=== PATIENT | female | born 1970 | race Caucasian/White ===

== ENCOUNTER 2016-08-02 21:51 | Inpatient (IN) | payer OTHER ==
--- NOTE | ~2016-08-02 | HP ---
Unit #: [id number] #: [id number] Patient: NIKOLE FORBES [id number] [address] [address] [id number] I MR#: [id number] NAME: NIKOLE MACIAS ROOM: 329 Age: 45 Sex: F Admission Date: 08/03/2016 : 1970 Attending Physician: Aracelis Brand M.D. Primary Care Physician: No Primary Care Physician HISTORY AND PHYSICAL CHIEF COMPLAINT Intentional Ambien overdose, agitation. HISTORY This 45-year-old female with history of depression, DJD who injects methamphetamines, is admitted after an Ambien overdose. The patient received two doses of Geodon in the ER and therefore, is a little bit sedated. However, whenever I spoke with her, she tells me that she took ten tablets of Ambien and possibly a second medication late last evening, perhaps about 7:30 p.m. EMS was called, the patient was extremely agitated. She was brought into this emergency department agitated, spitting at staff. She needed Four-Point restraints and ripped through the restraints. She was given 10 mg of IM Geodon with some improvement. She then awoke and became very combative again and required a second 10 mg injection. She now is sedated but easily arousable and is much less agitated. She is also treated with Zofran, and a liter of saline. Urine tox screen is positive for methamphetamines and opiates. The patient does have track gregory on her arms. She tells me that she does inject methamphetamines. She uses Percocet for her chronic back pain. She mainly is complaining of back pain currently. She did take the Ambien overdose last night as part of a suicide attempt. She states she has been increasingly depressed. PAST MEDICAL HISTORY 1. Depression. 2. DJD. ALLERGIES Amoxicillin. HOME MEDICATIONS Percocet 10. FAMILY HISTORY Unobtainable. SOCIAL HISTORY The patient tells me she lives with family. She smokes one pack per day of tobacco. Does not drink alcohol. She injects methamphetamines. REVIEW OF SYSTEMS Difficult to obtain as patient is about somnolent. Unit #: [id number] #: [id number] Patient: INKOLE FORBES PHYSICAL EXAMINATION GENERAL: Somnolent but arousable 45-year-old female complaining of back pain. VITAL SIGNS: Temperature 98, pulse 101, respirations 20, blood pressure 118/74, O2 saturation is 100% on room air. HEENT: Eyes - PERRLA. Pharynx benign. Poor dentition. NECK: Supple without adenopathy or thyromegaly. CHEST: Clear on patient's supine exam. CARDIAC: Normal S1 and S2 without murmur. ABDOMEN: Bowel sounds are present. No hepatosplenomegaly, tenderness, or masses. EXTREMITIES: Without clubbing, cyanosis or edema. Pedal pulses are present. Track gregory noted in the AC region bilaterally, left more than the right. No splinter hemorrhages on the fingernail beds. NEUROLOGIC: Patient is somnolent but does arouse. Her cranial nerves are intact. She has equal strength throughout. She currently is in Four-Point restraints. DIAGNOSTIC STUDIES ADMISSION LABS: Hematocrit is 41, normal white count and platelet count. SMA 12 - glucose 120, CO2 21, alk phos 144. Cardiac markers are negative. Acetaminophen, salicylate and alcohol levels are all negligible. Urine tox screen positive for amphetamines and opiates. Urinalysis is negative. ASSESSMENT 1. Intentional Ambien overdose. Patient states that she has been increasingly depressed. 2. Agitation. Patient required Geodon in the ER x2 after ripping out restraints, spitting at staff and was quite combative. She now is much less agitated after second dose of Geodon. 3. Methamphetamine IV drug abuse. 4. Chronic back pain. Patient reports taking Percocet, has a positive urine tox screen for opiates. 5. Hypokalemia. 6. Depression. PLANS 1. IV fluids and supportive treatment. 2. Recheck labs in the morning. 3. HIV testing. 4. Patient is on a 72 hour hold with one-to-one sitter. When stable will need [facility] to see. I have asked for the ankle restraints to be removed at this time. Dictated by Aracelis Brand M.D. FRANKIE/ts TD: 08/03/2016 05:43 JOB #: [id number] Unit #: [id number] #: [id number] Patient: NIKOLE FORBES HISTORY AND PHYSICAL X Aracelis Brand MD HISTORY AND PHYSICAL
--- NOTE | ~2016-08-02 | DS ---
Unit #: [id number] #: [id number] Patient: NIKOLE FORBES [id number] [address] [place], [place] [address] [id number] I MR#: [id number] NAME: NIKOLE FORBES ROOM: 329 Age: 45 Sex: F Admission Date: 08/03/2016 : 1970 Discharge Date: Attending Physician: Robbie Diallo M.D. Primary Care Physician: Primary Care Physician No DISCHARGE SUMMARY DISCHARGE DIAGNOSES 1. Suicide attempt with Ambien, intentional. 2. Agitation due to drug usage, polysubstance drug usage. 3. Methamphetamine current IV drug use. 4. Chronic back pain, abuses Percocet. 5. Hypokalemia, replacing. 6. Depression with suicide attempt. 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 DIAGNOSTIC STUDIES LABORATORY: At this time, patient's labs include: BMP: Glucose of 133, BUN 8, creatinine 0.8, sodium 138, potassium 3.3, chloride 112, CO2 is 25, calcium 8.3. Magnesium 1.8. Total protein 7.1, albumin 3.3, total bilirubin 0.5, AST 22, ALT 23, alkaline phosphatase 120. CPK 205. Troponins were undetectable. CBC with WBC at 5.9, RBC 3.91, hemoglobin 11.8, hematocrit 35.4, MCV 90.7, MCH 30.2, MCHC is 33.3, RDW 14.8, platelets 246,000, MPV 7.9. The labs that were assessed includes: HIV which was nonreactive. Blood alcohol level was undetected. Salicylate and acetaminophen were also undetected. Urine drug screen was positive for amphetamine as well as opioids. IMAGING: None. HOSPITAL COURSE The patient is a 45-year-old female with past medical history of depression and degenerative joint disease, who injects methamphetamines and was seen in the emergency department due to a suicide attempt with Ambien and unknown second component. Emergency department, she was brought there by EMS. Unsure who had called EMS but patient was found to have much confusion, agitated, spitting at the staff. She was on four-point restraint in the emergency department. She was given Geodon for the agitation. She was arousable and less agitated. When assessed, she did admit to taking 10 tablets of Ambien and the unknown second component. At this time, she again tells me she does not know but she tells me that she has had increasing depression. When I asked her at this time if she still has suicidal intentions, she says she does not know but denies homicidal ideation. She admits to using methamphetamine. At this time, she does not really want to answer much questions and answers "I don't know" to most of everything. Her only complaint at this time is a dry mouth. I believe that she is medically stable at this time after Unit #: [id number] #: [id number] Patient: NIKOLE FORBES replacement of potassium to be discharged to [facility]. I am having Dr. Brice see this patient with suicide attempt as well as history of IV drug use. DISCHARGE CONDITION Stable. DISPOSITION OLOP for continuing suicidal ideation with suicide attempt. MEDICATIONS None. ACTIVITY Resume activity as prior to hospitalization with ambulating every day. Dictated by... Smith Sotelo PA-C for Mara Torrez TD: 08/03/2016 13:26 JOB #: [id number] DISCHARGE SUMMARY X X DISCHARGE SUMMARY
--- NOTE | ~2016-08-02 | CO ---
Unit #: [id number] #: [id number] Patient: NIKOLE FORBES [id number] [address] [address] [id number] I MR#: [id number] NAME: NIKOLE FORBES ROOM: 329 Age: 45 Sex: F Admission Date: 08/03/2016 : 1970 Attending Physician: Robbie Diallo M.D. Consultation Date: 08/03/2016 CONSULTATION REPORT REASON FOR CONSULTATION Aggression, agitation, confusion, psychosis. HISTORY OF PRESENT ILLNESS Ms. Tabor is a 45-year-old female, seen on 08/03/2016 in room 329, bed 1 at [facility]. The patient needed a 4-point restraint and sitter. The patient was somewhat agitated and dressed in hospital attire. The patient's mood was labile. The patient was unable to give any reliable information, but admitted taking overdose, intentional Ambien overdose and agitation. The patient reported that she wanted to sleep. The patient reports that she took half a bottle. The patient in the emergency room was extremely agitated. The patient was brought to the emergency room department agitated, spitting at the staff. The patient needed 4-point restraint and then ripped through the restraint. The patient was given Geodon 10 mg IM with some improvement. The patient continues to have similar complaints and behavior. The patient, according to the staff reporting, is increasingly depressed. The patient has a history of depression. Mood was sad, dysphoric, labile, disorganized behavior, disorganized thought process. PAST PSYCHIATRIC HISTORY Remarkable for history of depression. No known history of any treatment or any inpatient treatment known at this time. MEDICAL HISTORY History of degenerative joint disease. ALLERGIES Amoxicillin. HOME MEDICATIONS Percocet 10. FAMILY HISTORY AND SOCIAL HISTORY The patient reports that she lives with the family, details unknown at this time. No known history of any abuse. The patient admitted injecting methamphetamine and also history of opioids. The patient's urine drug screen is positive for amphetamine and opioids. REVIEW OF SYSTEMS Complete review of systems is remarkable for agitation, needing restraints. MENTAL STATUS EXAMINATION General appearance, the patient is dressed casually in hospital attire, Unit #: [id number] #: [id number] Patient: VANDGRIFT,NIKOLE R needing restraints. Attention span and concentration, poor. Speech, disorganized. Orientation in place. Mood and affect, labile. Thought process, circumstantial. Thought content, guarded, paranoid. Recent and remote memory, poor. Language, able to name object. Fund of knowledge, impaired. Insight and judgment, impaired. DIAGNOSES Psychiatric: 1. Psychosis, not otherwise specified, F29.0. 2. Opioid use disorder, severe, F11.20. 3. Amphetamine use disorder, severe, F15.20. 4. Major depressive disorder, recurrent, F33.0. Secondary diagnosis: Deferred. Medical diagnosis: Please refer to H and P. Stressors: Psychosocial stressors. ASSESSMENT/PLAN 1. Supportive psychotherapy and psychoeducation were provided to patient, but the patient was unable to comprehend much. 2. Advised to continue with the sitter at this time and plan to transfer the patient to [facility] once the patient is medically stable. Please feel free to call if any questions; telephone #[phone]. Dictated by... Mara Colon/nithin TD: 08/04/2016 07:54 JOB #: [id number] CONSULTATION REPORT X Mario Brice MD X CONSULTATION REPORT
[2016-08-02 21:32] LABS: BASOPHIL# 0.1 X10e3 (0-0.3); BASOPHIL% 0.8 % (0-2.5); DIFF IND NO; EOSINOPHIL# 0.1 X10e3 (0-0.7); HEMATOCRIT 41.1 % (35.0-45.0); HEMOGLOBIN 13.8 gm/dL (12.0-16.0); LYMPHOCYTE# 2.3 X10e3 (1.0-3.5); LYMPHOCYTE% 31.8 % (17.0-45.0); MEAN CELL VOLUME 90.1 FL (83-96); MEAN CORPUSCULAR HEMOGLOBIN 30.3 PG (28-34); MEAN CORPUSCULAR HGB CONC 33.7 g/dL (30-36); MEAN PLATELET VOLUME 8.3 FL (6.5-11.5); MONOCYTE# 0.4 X10e3 (0-1.0); MONOCYTE% 5.4 % (3.0-12.0); NEUTROPHIL# 4.4 X10e3 (1.5-7.1); PLATELET COUNT 321 X10e3 (140-420); RED BLOOD COUNT 4.56 X10e (3.90-5.30); RED CELL DISTRIBUTION WIDTH 14.7 % (11.0-15.5); WHITE BLOOD COUNT 7.3 X10e3 (4.0-10.5)
[2016-08-02 21:40] LABS: AMPHETAMINE POS (NEG); BARBITURATES NEG (NEG); BENZODIAZEPINES NEG (NEG); COCAINE NEG (NEG); MARIJUANA NEG (NEG); OPIATES POS (NEG); TRICYCLIC ANTIDEPRESSANTS NEG (NEG); U METHADONE NEG (NEG)
[~2016-08-02 21:51] MED LIST: ANTIBIOTIC; BACLOFEN10 MG PO; COMPAZINE10 M2 PO; DIAZEPAM; DILANTIN; FLEXERIL10 MG PO; KLONOPIN1 MG PO; LAMICTAL2 MG PO; LAMICTAL5 MG PO; LORATADINE; MEDROL DOSEPAK4 MG PO; NASONEX17 GM; NEURONTIN300 MG PO; NO MEDICATIONS; PAXIL; PERCOCET 10/3251 TAB PO; PREDNISONE PO; PROTONIX20 MG PO; PROZAC PO; TOPAMAX; ULTRAM PO
[2016-08-02 21:53] LABS: ALBUMIN SERUM 3.9 g/dL (3.5-5.0); ALKALINE PHOSPHATASE 144 U/L (32-92); ALT (SGPT) 28 U/L (10-40); AST (SGOT) 31 U/L (10-42); BILIRUBIN, DIRECT 0.1 mg/dL (0.0-0.2); BILIRUBIN,INDIRECT 0.5 mg/dL (0.0-0.9); BILIRUBIN,TOTAL 0.6 mg/dL (0.2-2.0); BLOOD UREA NITROGEN 9 mg/dL (9-23); BUN/CREATININE RATIO 12.85; CALCIUM SERUM 9.3 mg/dL (8.4-10.2); CARBON DIOXIDE 21 mmol/L (22-31); CHLORIDE 104 mmol/L (100-111); CREATININE SERUM 0.7 mg/dL (0.6-1.4); GLOM FILT RATE Estimated ABOVE60 mL/min (>60); GLUCOSE FASTING 120 mg/dL (70-110); POTASSIUM 3.2 mmol/L (3.5-5.1); PROTEIN TOTAL SERUM 8.2 g/dL (6.0-8.3); SALICYLATE <4.0 mg/dL; SODIUM 138 mmol/L (135-145)
[2016-08-02 21:58] LABS: ACETAMINOPHEN <10 ug/mL; ALCOHOL BLOOD <5 mg/dL (0)
[2016-08-02 22:33] LABS: URINE SOURCE CATH
[2016-08-02 22:35] LABS: URINE BILIRUBIN NEG (NEG); URINE BLOOD NEG (NEG); URINE GLUCOSE NORM (NORM); URINE KETONE NEG (NEG); URINE LEUKOCYTE ESTERASE NEG (NEG); URINE NITRATE NEG (NEG); URINE PROTEIN NEG (NEG); URINE SPECIFIC GRAVITY 1.015 (1.003-1.035); URINE UROBILINOGEN NORM (NORM)
[2016-08-02 22:37] LABS: URINE APPEARANCE CLEAR; URINE COLOR YELLOW
[2016-08-02 22:38] LABS: CULTURE INDICATED? NO
[2016-08-03 08:57] LABS: HEMATOCRIT 35.4 % (35.0-45.0); MEAN CELL VOLUME 90.7 FL (83-96); MEAN CORPUSCULAR HEMOGLOBIN 30.2 PG (28-34); MEAN CORPUSCULAR HGB CONC 33.3 g/dL (30-36); MEAN PLATELET VOLUME 7.9 FL (6.5-11.5); RED BLOOD COUNT 3.91 X10e (3.90-5.30); RED CELL DISTRIBUTION WIDTH 14.8 % (11.0-15.5); WHITE BLOOD COUNT 5.9 X10e3 (4.0-10.5)
[2016-08-03 08:59] LABS: HEMOGLOBIN 11.8 gm/dL (12.0-16.0)
[2016-08-03 09:30] LABS: ALBUMIN SERUM 3.3 g/dL (3.5-5.0); ALKALINE PHOSPHATASE 120 U/L (32-92); ALT (SGPT) 23 U/L (10-40); AST (SGOT) 22 U/L (10-42); BILIRUBIN,TOTAL 0.5 mg/dL (0.2-2.0); BLOOD UREA NITROGEN 8 mg/dL (9-23); CALCIUM SERUM 8.3 mg/dL (8.4-10.2); CARBON DIOXIDE 25 mmol/L (22-31); CHLORIDE 112 mmol/L (100-111); CPK (CREATINE PHOSPHOKINASE) 205 IU/L (26-140); CREATININE SERUM 0.8 mg/dL (0.6-1.4); GLOM FILT RATE Estimated ABOVE60 mL/min (>60); GLUCOSE FASTING 133 mg/dL (70-110); MAGNESIUM 1.8 mg/dL (1.6-3.0); POTASSIUM 3.3 mmol/L (3.5-5.1); PROTEIN TOTAL SERUM 7.1 g/dL (6.0-8.3); SODIUM 138 mmol/L (135-145)
== END 2016-08-03 17:38 | DRG 918 ==
LOC: CED 21:51 → CEDOF 08-03 03:36 → C3A PCU 08-03 04:38
PROVIDERS: Emergency Medicine; Internal Medicine
DX: T42.6X2A Poisoning by other antiepileptic and sedative-hypnotic drugs, intentional self-harm, initial encounter (principal); F33.9 Major depressive disorder, recurrent, unspecified; F11.20 Opioid dependence, uncomplicated; F15.20 Other stimulant dependence, uncomplicated; M54.9 Dorsalgia, unspecified; E87.6 Hypokalemia; F17.210 Nicotine dependence, cigarettes, uncomplicated; M19.90 Unspecified osteoarthritis, unspecified site
CPT/HCPCS: 36415; 51701; 80048; 80053; 80076; 80307; 81003; 82550; 83735; 84484; 85025; 85027; 87806; 96361; 96372; 96374; 96375; 96376; 99285; G0378; G0480; J1885; J2405; J3486

== ENCOUNTER 2016-08-03 18:18 | Inpatient (IN) | payer OTHER ==
--- NOTE | ~2016-08-03 | HP ---
Unit #: [id number] #: [id number] Patient: SHARONA FORBES [id number] [facility] [address] [place] [address] [id number] I MR#: [id number] NAME: SHARONA FORBES ROOM: [facility] Age: 45 Sex: F Admission Date: 08/03/2016 : 1970 Attending Physician: Silvio Sow M.D. Admitting Physician: Silvio Sow M.D. Primary Care Physician: Primary Care Physician No HISTORY AND PHYSICAL Sharona is a 45 year old admitted to [facility] after an intentional overdose of Ambien and trazodone. She was admitted to [facility] on 08/03/16 and when medically stable transferred to [facility] for psychiatric care. Patient was seen and H and P from [facility] dated 08/03/16 and discharge summary dated the same were reviewed. These are current. No changes. Please see H and P and discharge summary from [facility]. Dictated by... Sole Murrieta P.A.-C. for Mara Torrez/sincere TD: 08/04/2016 21:52 JOB #: [id number] HISTORY AND PHYSICAL X Sole Murrieta HISTORY AND PHYSICAL
--- NOTE | ~2016-08-03 | PN ---
Unit #: [id number] #: [id number] Patient: NIKOLE FORBES [id number] [facility] [address] [place] [address] [id number] I MR#: [id number] NAME: NIKOLE FORBES ROOM: 80 Age: 45 Sex: F Admission Date: 08/03/2016 : 1970 Attending Physician: Silvio Sow M.D. Admitting Physician: Silvio Sow M.D. Primary Care Physician: Primary Care Physician Arline TOMLIN PROGRESS NOTES DATE 08/05/2016 DISCUSSION The patient is abed today. She has participated to no significant degree within the therapeutic milieu but continues to deny suicidal ideation. She continues to deny suicidal ideation. However, given the history of abuse of methamphetamine and the circumstance of discharge we will plan to watch the patient for one further day. Dictated by... Silvio Sow M.D. CB/maxi TD: 08/06/2016 10:56 JOB #: [id number] [facility]OS[facility] PROGRESS NOTES X Silvio Sow MD PROGRESS NOTE
--- NOTE | ~2016-08-03 | PA ---
Unit #: [id number] #: [id number] Patient: NIKOLE FORBES [id number] [facility] [address] [place] [address] [id number] I MR#: [id number] NAME: NIKOLE FORBES ROOM: 80 Age: 45 Sex: F Admission Date: 08/03/2016 : 1970 Date of Assessment: 08/04/2016 Attending Physician: Silvio Sow M.D. Admitting Physician: Silvio Sow M.D. Primary Care Physician: Primary Care Physician No PSYCHIATRIC ASSESSMENT IDENTIFYING INFORMATION The patient is a 45-year-old white female admitted following an ingestion of Ambien and trazodone. INFORMANT(S) Patient. RELIABILITY Fair. CHIEF COMPLAINT I was just trying to get some sleep. HISTORY OF PRESENT ILLNESS The patient is a 45-year-old white female admitted in transfer from [facility] where she was treated for an ingestion of Ambien and trazodone. The patient has denied that this was a suicide attempt stating that she was "just trying to get some sleep." She does, however, have a history of methamphetamine abuse and does have a history of 2 previous suicide attempts. She denies that she had written a suicide noted and denies involvement of alcohol in this episode. The patient reports no current suicidal ideation. She has been at this facility in the past and was in fact seen by this physician and begun on a combination of Lamictal, Prozac and Zyprexa. The patient states that she lives alone. She is disabled secondary to history of chronic back pain. She does admit to intravenous methamphetamine use but states that she has no interest in stopping this at this point. She is denying current suicidal or homicidal ideation. The patient is noted to be quite bruised during evaluation today. PAST PSYCHIATRIC HISTORY As above. FAMILY HISTORY Noncontributory. SOCIAL HISTORY The patient lives alone. Her substance use history is noted previously. She does not work outside the home. MEDICAL HISTORY Significant for a history of back injury. Unit #: [id number] #: [id number] Patient: NIKOLE FORBES MEDICATION HISTORY The patient claims to have been prescribed oxycodone and is also prescribed Neurontin. ALLERGIES Codeine, ampicillin, Zithromax, latex. MENTAL STATUS EXAM At this time, reveals the patient to be an obese and heavily bruised white female appearing her stated age. She is in no apparent physical distress at time of examination. She is awake, alert, oriented in all spheres. Her mood is mildly dysphoric. Her affect congruent. Speech is generally relevant and coherent. There are no gross deficits in memory or cognition noted. Intelligence is judged to be in the average range based on fund of knowledge. The patient is cooperative throughout the interview. She is currently denying or homicidal ideation or psychotic features. Judgement and insight appear to be reasonably intact. ASSETS AND LIABILITIES Patient's assets, motivation for change. Liabilities, lack of resources. ADMITTING DIAGNOSES 1. Methamphetamine use disorder. 2. Major depressive disorder, recurrent, moderate. 3. Degenerative disc disease. 4. Obesity. 5. Status post ingestion of zolpidem and trazodone without sequela. PSYCHIATRIC PLAN/TREATMENT GOALS The patient remains hospitalized for safety and stabilization. We will restart previously prescribed Prozac, Zyprexa and Neurontin. The patient will be watched for any signs or symptoms of withdrawal and suicide precautions remain in place given the circumstances of admission. ESTIMATED LENGTH OF STAY Two to three days. Dictated by... Silvio Sow M.D. ROLAND/sincere TD: 08/04/2016 15:49 JOB #: [id number] PSYCHIATRIC ASSESSMENT X Silvio Sow MD X PSYCHIATRIC ASSESSMENT
--- NOTE | ~2016-08-03 | DS ---
Unit #: [id number] #: [id number] Patient: NIKOLE FORBES [id number] [place] [address] [id number] MR#: [id number] NAME: NIKOLE FORBES ROOM: 80 Age: 45 Sex: F Admission Date: 08/03/2016 : 1970 Discharge Date: 08/06/2016 Attending Physician: Silvio Sow M.D. Primary Care Physician: Primary Care Physician No DISCHARGE SUMMARY REASON FOR ADMISSION The patient is a 45-year-old white female, admitted following an ingestion of Ambien and trazodone. HOSPITAL COURSE The patient was admitted to the [facility] unit and placed on suicide precautions. She was watched for any signs or symptoms of withdrawal from alcohol or Ambien, but exhibited none. She did complain of severe back pain, but otherwise was generally pleasant and cooperative. She participated to no significant degree whatsoever within the therapeutic milieu, however, stating that she planned to continue her abuse of methamphetamine once discharged. By 08/06/2016, the patient was felt to be at or near her psychiatric baseline, again she denied suicidal ideation. She requested this physician to write her prescription for Ultram, a request which was politely declined. FINAL DIAGNOSES Methamphetamine use disorder; major depressive disorder, recurrent, moderate; degenerative disk disease; obesity, status post ingestion of zolpidem and trazodone without sequelae. DISPOSITION ON DISCHARGE The patient is discharged on the following medications: Neurontin 800 mg b.i.d. for chronic pain, Prozac 20 mg once daily for depression, Zyprexa 5 mg once daily for depression, Motrin 600 mg q.6 hours p.r.n. pain. This physician will not provide prescriptions for the patient. She is instructed to follow with her primary care provider related to this. The patient declines an offer of chemical dependency intensive outpatient programming stating that she plans to continue abusing methamphetamine. PROGNOSIS Her prognosis is thus considered a poor one. Dictated by... Silvio Sow M.D. CB/nithin TD: 08/06/2016 23:21 JOB #: [id number] Unit #: [id number] #: [id number] Patient: NIKOLE FORBES DISCHARGE SUMMARY X Silvio Sow MD DISCHARGE SUMMARY
[2016-08-04 10:22] LABS: THYROID STIMULATING HORMONE 0.21 uIU/ml (0.34-5.60)
[2016-08-04 10:29] LABS: FREE THYROXIN (T4) 0.71 ng/dL (0.58-1.64)
== END 2016-08-06 15:09 | disposition home or self-care (01) | DRG 897 ==
LOC: P1E 18:18
PROVIDERS: Specialist
DX: F15.10 Other stimulant abuse, uncomplicated (principal); F33.1 Major depressive disorder, recurrent, moderate; E66.9 Obesity, unspecified; Z91.040 Latex allergy status
CPT/HCPCS: 84439; 84443